=== PATIENT | female | born 1995 | race Caucasian/White ===

== ENCOUNTER 2022-07-31 09:42 | Emergency (ER) | payer MEDICAID ==
[2022-07-31] MEDS ORDERED: Ketorolac 30 MG/ML SDV IVPUSH ONE (10:16)
[2022-07-31] MEDS ORDERED: Ketorolac 30 MG/ML SDV IM ONE (10:18)
[2022-07-31 10:37] LABS: CORONAVIRUS COVID-19 NAA NEGATIVE (NEGATIVE)
[2022-07-31 11:14] VITALS: BP 124/69; PULSE 94
== END 2022-07-31 11:25 | disposition home or self-care (01) ==
LOC: JP.ED 09:42
DX: J02.9 Acute pharyngitis, unspecified (principal); M54.50 Low back pain, unspecified; M25.551 Pain in right hip; M25.552 Pain in left hip; Z79.899 Other long term (current) drug therapy; Z86.16 Personal history of COVID-19; Z20.822 Contact with and (suspected) exposure to COVID-19
CPT/HCPCS: 0241U; 81001; 81025; 87081; 87880; 96372; 99283; J1885; 99282